=== PATIENT | male | born 1985 | race Caucasian/White ===

== ENCOUNTER 2016-03-03 22:04 | Emergency (ER) | payer MEDICAID ==
[~2016-03-03] VITALS: Ht 175.3 cm; Wt 99.8 kg
[~2016-03-03 22:04] MED LIST: ALBUPOW26
[2016-03-03 23:03] VITALS: BP 138/90
[2016-03-04] MEDS ORDERED: IPRATROPIUM BROM 0.5 MG/2.5ML INH SOL NEB ONE (00:15)
[2016-03-04] MEDS ORDERED: methylPREDNISolone SOD SUCC 125 MG/2 ML VL IM ONE (00:15)
[2016-03-04] MEDS ORDERED: ALBUTEROL SULF 2.5 MG/0.5ML(0.5%) NEB SOLN NEB ONE (00:15)
== END 2016-03-04 00:50 | disposition home or self-care (01) ==
LOC: ER 22:18
DX: J45.901 Unspecified asthma with (acute) exacerbation (principal); Z76.0 Encounter for issue of repeat prescription
CPT/HCPCS: 71010; 94640; 96372; 99283; J2930

== ENCOUNTER 2016-03-21 19:44 | Emergency (ER) | payer SELFPAY ==
[~2016-03-21] VITALS: Ht 175.3 cm; Wt 99.8 kg
[2016-03-21] MEDS ORDERED: ALBUTEROL SULF 2.5 MG/0.5ML(0.5%) NEB SOLN NEB ONE (20:30)
[2016-03-21] MEDS ORDERED: IPRATROPIUM BROM 0.5 MG/2.5ML INH SOL NEB ONE (20:30)
[2016-03-21] MEDS ORDERED: methylPREDNISolone SOD SUCC 125 MG/2 ML VL IM ONE (21:00)
[2016-03-21 21:22] VITALS: BP 159/92
== END 2016-03-21 21:25 | disposition home or self-care (01) ==
LOC: ER 19:48
DX: J45.909 Unspecified asthma, uncomplicated (principal)
CPT/HCPCS: 71020; 94640; 96372; 99284; J2930

== ENCOUNTER 2016-04-16 01:33 | Emergency (ER) | payer MEDICAID ==
[~2016-04-16] VITALS: Ht 175.3 cm; Wt 95.3 kg
[2016-04-16 04:32] VITALS: BP 126/78
[2016-04-16] MEDS ORDERED: ALBUTEROL SULF 2.5 MG/0.5ML(0.5%) NEB SOLN NEB ONE (04:45)
[2016-04-16] MEDS ORDERED: IPRATROPIUM BROM 0.5 MG/2.5ML INH SOL NEB ONE (04:45)
== END 2016-04-16 05:14 | disposition home or self-care (01) ==
LOC: ER 01:35
DX: J45.901 Unspecified asthma with (acute) exacerbation (principal); Z76.0 Encounter for issue of repeat prescription
CPT/HCPCS: 94640

== ENCOUNTER 2016-04-23 00:53 | Emergency (ER) | payer MEDICAID ==
[~2016-04-23] VITALS: Ht 175.3 cm; Wt 97.5 kg
[2016-04-23 02:02] VITALS: BP 119/77
[2016-04-23] MEDS ORDERED: LIDOCAINE 1% HCL (LOCAL ANESTH.) INJ 20ML MDV IJ ONE (02:15)
[2016-04-23] MEDS ORDERED: BACITRACIN TOP OINT 1 UD PKG TOP ONE (03:00)
== END 2016-04-23 03:33 | disposition home or self-care (01) ==
LOC: ER 00:55
DX: S90.851A Superficial foreign body, right foot, initial encounter (principal); M79.5 Residual foreign body in soft tissue; J45.909 Unspecified asthma, uncomplicated; W25.XXXA Contact with sharp glass, initial encounter; Y93.89 Activity, other specified; Y99.8 Other external cause status; Y92.89 Other specified places as the place of occurrence of the external cause
CPT/HCPCS: 28190; 73630; 99284; J2001

== ENCOUNTER 2016-06-25 01:01 | Emergency (ER) | payer MEDICAID, OTHER ==
[~2016-06-25] VITALS: Ht 175.3 cm; Wt 97.5 kg
[2016-06-25 01:09] VITALS: BP 140/88
[2016-06-25] MEDS ORDERED: ALBUTEROL SULF 2.5 MG/0.5ML(0.5%) NEB SOLN NEB ONE (01:45)
[2016-06-25] MEDS ORDERED: IPRATROPIUM BROM 0.5 MG/2.5ML INH SOL NEB ONE (01:45)
== END 2016-06-25 02:09 | disposition home or self-care (01) ==
LOC: ER 01:03
DX: J45.909 Unspecified asthma, uncomplicated (principal); Z76.0 Encounter for issue of repeat prescription
CPT/HCPCS: 94640